=== PATIENT | male | born 1985 | race Caucasian/White ===

== ENCOUNTER 2021-12-20 15:09 | Emergency (ER) | payer BC ==
[~2021-12-20] VITALS: Ht 160 cm; Wt 73.0 kg
[2021-12-20 15:51] VITALS: BP 134/87
[2021-12-20] MEDS ORDERED: PSEU120T56 MT (17:40)
[2021-12-20] MEDS ORDERED: AMOX1TAB16 MT (17:42)
== END 2021-12-20 18:29 | disposition home or self-care (01) ==
LOC: ER 15:09
DX: J32.9 Chronic sinusitis, unspecified (principal)
CPT/HCPCS: 99281; 99283